=== PATIENT | female | born 1965 | race Caucasian/White ===

== ENCOUNTER 2021-09-01 19:22 | Emergency (ER) | payer MEDICAID, OTHER ==
[~2021-09-01] VITALS: Ht 165.1 cm; Wt 69.1 kg
[2021-09-01 19:35] VITALS: BP 166/76
[2021-09-01 22:01] LABS: BASOPHILS # (AUTO) 0.1 K/uL (0.00-0.22); BASOPHILS % (AUTO) 0.8 % (0.0-2.0); EOSINOPHILS # (AUTO) 0.1 K/uL (0-0.4); EOSINOPHILS % (AUTO) 1.7 % (0.0-4.0); HEMATOCRIT 41.5 % (36-48); HEMOGLOBIN 14.2 g/dL (12.0-16.0); LYMPHOCYTES # (AUTO) 2.3 K/uL (2.5-16.5); LYMPHOCYTES % (AUTO) 33.3 % (20.5-51.1); MEAN CORPUSCULAR HEMOGLOBIN 32 pg (27-31); MEAN CORPUSCULAR HGB CONC 34 g/dL (33-37); MEAN CORPUSCULAR VOLUME 93.4 fL (80-94); MONOCYTES # (AUTO) 0.6 K/uL (0.8-1.0); MONOCYTES % (AUTO) 7.9 % (1.7-9.3); NEUTROPHILS # (AUTO) 3.9 K/uL (1.8-7.7); NEUTROPHILS % (AUTO) 56.3 % (42.2-75.2); PLATELET COUNT (AUTO) 156 K/uL (140-450); RED BLOOD CELL COUNT(AUTO) 4.44 MIL/uL (4.20-5.40); RED CELL DISTRIBUTION WIDTH 13.2 % (11.6-13.7)
[2021-09-01 22:29] LABS: ALBUMIN 3.7 g/dL (3.4-5.0); ANION GAP 10.5 (8-16); CARBON DIOXIDE 28.6 mmol/L (21-32); CREATININE 0.6 mg/dL (0.6-1.3); POTASSIUM 4.1 mmol/L (3.5-5.1); TOTAL BILIRUBIN 0.4 mg/dL (0.0-1.0)
[2021-09-01] MEDS ORDERED: NITROGLYCERIN 0.4 MG TAB SL ONE (23:05)
[2021-09-01] MEDS ORDERED: ASPIRIN 325 MG TAB PO ONE (23:05)
[2021-09-02] MEDS ORDERED: NITROGLYCERIN 0.4 MG TAB SL ONE (00:55)
[2021-09-02] MEDS ORDERED: ASPIRIN 325 MG TAB ONE (00:55)
[2021-09-02] MEDS ORDERED: PANT40EC PO (01:39)
[2021-09-02 02:11] VITALS: BP 134/77
--- NOTE | 2021-09-02 02:11 | NUR ---
Patient discharged with v/s stable. Written and verbal after care instructions given and explained. Patient alert, oriented and verbalized understanding of instructions. Ambulatory with steady gait. All questions addressed prior to discharge. ID band removed. Patient advised to follow up with PMD. Rx of protonix given. Patient educated on indication of medication including possible reaction and side effects. Opportunity to ask questions provided and answered.
== END 2021-09-02 02:11 | disposition home or self-care (01) ==
LOC: MED 19:22
DX: R07.89 Other chest pain (principal); I10 Essential (primary) hypertension; E11.9 Type 2 diabetes mellitus without complications; Z79.899 Other long term (current) drug therapy
CPT/HCPCS: 36415; 71045; 80053; 84484; 85025; 93005; 99285